=== PATIENT | female | born 1950 | race Caucasian/White ===

== ENCOUNTER 2017-03-03 10:09 | Emergency (ER) | payer MEDICARE, OTHER ==
[2017-03-03 11:02] VITALS: BP 157/67
[2017-03-03 11:39] LABS: CHLORIDE,CL 103 mmol/L (101-111); SODIUM,NA 139 mmol/L (135-145)
--- NOTE | 2017-03-03 12:50 | EDM.PDOC ---
Scribed by Melodie Gusman 03/03/17 1250 for Trip Bustamante MD ED HPI GENERAL MEDICAL PROBLEM - General Chief Complaint: Genitourinary Problem Stated Complaint: [id number] BLOOD IN URINE Time Seen by Provider: 03/03/17 10:43 Source of Information: Reports: Patient, RN, RN Notes Reviewed History Limitations: Reports: No Limitations - History of Present Illness INITIAL COMMENTS - FREE TEXT/NARRATIVE: Complained of blood in urine onset yesterday, no pain. Appears every time she urinates. Never happened before. No fever or chills. No recent injury. No change in bowel habits. No dark stool. No vaginal bleeding. Quality: Reports: Ache Severity: Severe Improves with: Reports: None Worsens with: Reports: None Associated Symptoms: Reports: No Other Symptoms - Related Data Allergies Allergy/AdvReac Type Severity Reaction Status Date / Time morphine AdvReac Severe SEVERE Verified 03/03/17 10:54 NAUSEA Home Meds: Home Meds Ascorbic Acid/Multivit-Min [Emergen-C Immune Plus Packet] 1 packet PO ASDIRECTED 07/11/15 [History] Calcium Carb/Vitamin D3/Vit K1 [Calcium + Vit D & K Chew] 1 tab PO BID 07/11/15 [History] Multivit-Min/Iron Fum/Folic AC [Zwper-Zvwnmpc-Fborpfuw Tablet] 1 tab PO DAILY [History] Past Medical History Cardiovascular History: Reports: High Cholesterol Genitourinary History: Reports: UTI, Recurrent 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: Endocrine/Metabolic History: Reports: Osteopenia, Other (See Below) Other Endocrine/Metabolic History: MACROCYTOSIS Hematologic History: Reports: Other (See Below) Other Hematologic History: MACROCYTOSIS - Past Surgical History Female Surgical History: Reports: Breast Biopsy, Breast Reconstruction, Section Musculoskeletal Surgical History: Reports: Shoulder Surgery, Other (See Below) Social & Family History - Family History Family Medical History: Noncontributory - Tobacco Use Smoking Status *Q: Former Smoker - Recreational Drug Use Recreational Drug Use: No ED ROS GENERAL - Review of Systems Review Of Systems: ROS reveals no pertinent complaints other than HPI. ED EXAM, RENAL/ - Physical Exam Exam: See Below Exam Limited By: No Limitations General Appearance: Alert, WD/WN, No Apparent Distress Respiratory/Chest: No Respiratory Distress Cardiovascular: Normal Peripheral Pulses, Regular Rate, Rhythm, No Edema, No Gallop, No JVD, No Murmur, No Rub GI/Abdominal: Normal Bowel Sounds, Soft, Non-Tender, No Organomegaly, No Distention, No Abnormal Bruit, No Mass, Other (No suprapubic tenderness.) (Female) Exam: Deferred Rectal (Female) Exam: Deferred Back Exam: No: CVA Tenderness (L), CVA Tenderness (R) Extremities: Normal Inspection, Normal Range of Motion, Non-Tender, Normal Capillary Refill, No Pedal Edema Neurological: Alert, Oriented, CN II-XII Intact, Normal Cognition, Normal Gait, Normal Reflexes, No Motor/Sensory Deficits Psychiatric: Normal Affect, Normal Mood Skin Exam: Warm, Dry, Intact, Normal Color, No Rash Course - Vital Signs Last Recorded V/S: Last Vital Signs Temp 36.8 C 03/03/17 10:42 Pulse 74 03/03/17 10:42 Resp 18 03/03/17 10:42 BP 157/67 H 03/03/17 10:42 Pulse Ox 100 03/03/17 10:42 - Orders/Labs/Meds Orders: Active Orders 24 hr Category Date Time Status CULTURE URINE [RM] Stat Lab 03/03/17 10:43 Received Labs: Laboratory Tests 03/03/17 03/03/17 03/03/17 Range/Units 10:43 11:14 11:14 WBC 7.0 (5.0-10.0) 10^3/uL RBC 3.61 L (4.2-5.4) 10^6/uL Hgb 11.9 L (12.0-16.0) g/dL Hct 37.3 (37.0-47.0) % MCV 103.3 H (80-100) fL MCH 33.0 (27.0-34.0) pg MCHC 31.9 L (33.0-35.0) g/dL Plt Count 299 (150-450) 10^3/uL Neut % (Auto) 65.4 (42.2-75.2) % Lymph % (Auto) 27.2 (20.5-50.1) % Edmunds % (Auto) 6.3 (2-8) % Eos % (Auto) 1.0 (1.0-3.0) % Baso % (Auto) 0.1 (0.0-1.0) % Sodium 139 (135-145) mmol/L Potassium 4.8 (3.6-5.0) mmol/L Chloride 103 (101-111) mmol/L Carbon Dioxide 28.0 (21.0-31.0) mmol/L Anion Gap 12.8 BUN 16 (7-18) mg/dL Creatinine 0.6 (0.6-1.3) mg/dL Est Cr Clr Drug Dosing 70.28 mL/min Estimated GFR (MDRD) > 60 BUN/Creatinine Ratio 26.66 Glucose 91 (74-105) mg/dL Calcium 9.5 (8.4-10.2) mg/dl Total Bilirubin 0.7 (0.2-1.0) mg/dL AST 28 (10-42) IU/L ALT 36 (10-60) IU/L Alkaline Phosphatase 178 H (42-121) IU/L Total Protein 7.8 (6.7-8.2) g/dl Albumin 3.8 (3.2-5.5) g/dl Globulin 4.0 Albumin/Globulin Ratio 0.95 Urine Color Patricia (YELLOW) Urine Appearance Turbid (CLEAR) Urine pH 7.0 (5.0-9.0) Ur Specific [place] 1.015 (1.005-1.030) Urine Protein 30 H (NEGATIVE) Urine Glucose (UA) Negative (NEGATIVE) Urine Ketones Negative (NEGATIVE) Urine Occult Blood Large H (NEGATIVE) Urine Nitrite Positive H (NEGATIVE) Urine Bilirubin Negative (NEGATIVE) Urine Urobilinogen 0.2 (0.2-1.0) mg/dL Ur Leukocyte Esterase Trace H (NEGATIVE) Urine RBC >100 H /HPF Urine WBC 5-10 H (0-5/HPF) /HPF Ur Epithelial Cells Rare /HPF Urine Bacteria Many H (0-FEW/HPF) /HPF - Radiology Interpretation Free Text/Narrative:: CT abdomen/pelvis: No urinary calculi. No evidence of acute obstructive uropathy. Bilateral renal pelves, more prominent on the right, with mild fullness of the fibula bilaterally. No obstructing etiology. Mild colonic diverticulosis without diverticulitis. Mild dilatation of the distal CBD measuring 7.5mm. No obstructing etiology identified. Fibroid uterus. See rad report. Departure - Departure Time of Disposition: 12:47 Disposition: Home, Self-Care 01 Condition: Good Clinical Impression: UTI (urinary tract infection) Qualifiers: Urinary tract infection type: site unspecified Hematuria presence: with hematuria Qualified Code(s): N39.0 - Urinary tract infection, site not specified ; R31.9 - Hematuria, unspecified Hematuria Qualifiers: Hematuria type: gross Qualified Code(s): R31.0 - Gross hematuria - Discharge Information Instructions: Urinary Tract Infection, Adult, Zvne-od-Iinz, Hematuria, Adult Forms: ED Department Discharge Additional Instructions: RX: Cipro 500mg. Follow up in clinic in 5 to 7 days if not improved. - My Orders Last 24 Hours: My Active Orders 03/03/17 10:43 CULTURE URINE [RM] Stat - Assessment/Plan Last 24 Hours: My Active Orders 03/03/17 10:43 CULTURE URINE [RM] Stat I have read and agree with the documentation that has been completed regarding this visit. By signing this record, I attest that the documentation was completed in my physical presence and is an accurate record of the encounter.
== END 2017-03-03 13:06 | disposition home or self-care (01) ==
LOC: DL.ED 10:09
DX: N39.0 Urinary tract infection, site not specified (principal); R31.0 Gross hematuria; E78.00 Pure hypercholesterolemia, unspecified; Z98.890 Other specified postprocedural states; Z87.891 Personal history of nicotine dependence; Z88.5 Allergy status to narcotic agent
CPT/HCPCS: 36415; 74176; 80053; 81001; 85025; 87086; 87088; 87186; 99283

== ENCOUNTER 2018-07-16 09:11 | Day surgery (SDC) | payer MEDICARE, OTHER ==
[2018-07-16] MEDS ORDERED: Sodium Chloride 0.9% 10 ML Syringe IV ONE (09:12)
[2018-07-16] MEDS ORDERED: Dexamethasone 4 MG/ML SDV IV ONE (09:12)
[2018-07-16] MEDS ORDERED: Midazolam 1 MG/ML 2 ML SDV IV ONE (09:12)
[2018-07-16] MEDS ORDERED: Timolol Maleate 0.5% Ophth Soln 5 ML Bottle EYERT ONE (09:30)
[2018-07-16] MEDS ORDERED: Cataract Ophth Solution EYERT ONE (09:30)
[2018-07-16] MEDS ORDERED: Sodium Chloride 0.9% 10 ML Syringe FLUSH PRN (09:30)
[2018-07-16] MEDS ORDERED: Acetaminophen 325 MG Tab PO PRN (09:30)
[2018-07-16] MEDS ORDERED: Povidone-Iodine 5% Sterile Ophth Soln 30 ML Bottle EYERT ONE ×2 (09:30→10:54)
[2018-07-16] MEDS ORDERED: Proparacaine 0.5% Ophth Soln 15 ML Bottle EYERT ONE (09:30)
[2018-07-16] MEDS ORDERED: Phenylephrine 10% Ophth Soln 5 ML Bot EYERT PRN (09:30)
[2018-07-16] MEDS ORDERED: Phenylephrine 10% Ophth Soln 5 ML Bot EYERT ONE (09:30)
[2018-07-16] MEDS ORDERED: Ondansetron 4 MG/2 ML SDV IVPUSH PRN (09:30)
[2018-07-16] MEDS ORDERED: Moxifloxacin 0.5% Ophth Soln 3 ML Bottle EYERT ONE (09:30)
[2018-07-16] MEDS ORDERED: Tetracaine HCl/PF 0.5% 4 ML Bottle EYERT ONE (10:53)
[2018-07-16] MEDS ORDERED: Apraclonidine 0.5% Ophth Soln 5 ML Bot EYERT ONE (10:54)
[2018-07-16] MEDS ORDERED: Diclofenac Sodium 0.1% Ophth Soln 5 ML Bottle EYERT ONE (10:54)
[2018-07-16] MEDS ORDERED: Dexamethasone/Neomycin/Polymyxin B Ophth Oint 3.5 GM Tube EYERT ONE (10:55)
[2018-07-16] MEDS ORDERED: Vancomycin 500 MG SDV EYERT ONE (10:55)
[2018-07-16] MEDS ORDERED: Balanced Salt Solution Ophth Irrig 500 ML Bottle IOCULAR ONE (10:56)
[2018-07-16] MEDS ORDERED: Lidocaine 1% 30 ML SDV ONE (10:57)
[2018-07-16] MEDS ORDERED: Chondroitin Sulfate/Hyaluronate Sodium Ophth Inj 0.75 ML Syringe EYERT ONE (10:57)
--- NOTE | 2018-07-16 11:29 | OR ---
DATE: 07/16/2018 PREOPERATIVE DIAGNOSIS: Visually significant mixed cataract, right eye. POSTOPERATIVE DIAGNOSIS: Visually significant mixed cataract, right eye. PROCEDURE: Extracapsular cataract extraction with intraocular lens implant, right eye. ANESTHESIA: Topical/local MAC. COMPLICATIONS: None. INDICATION: Ms. Jin was seen in the clinic. She has complaints of difficulty reading and difficulty seeing small print. Her examination reveals mixed cataract with nuclear and cortical change. I explained options; offered surgery; and explained risks including the potential for infection, retinal detachment, and loss of vision amongst others. We discussed implant options, and she requested surgery with a monofocal implant. OPERATIVE DESCRIPTION: After informed consent was obtained and the risks, benefits, and alternatives were explained, the patient was brought to the operative suite and topical anesthesia was administered. The patient was then prepped and draped in the sterile fashion, and attention was placed on the right eye. A sterile lid speculum was placed into the right eye to allow operative exposure. A full-thickness paracentesis was made in the temporal portion of the operative eye. Preservative-free lidocaine 0.1 mL was injected into the anterior chamber followed by viscoelastic. A full-thickness corneal incision was then made into the anterior chamber. A bent needle cystotome was used to create a small megan in the anterior capsule. The capsulorrhexis forceps was then used to create a 360-degree curvilinear capsulorrhexis. The nucleus was then removed using a phacoemulsification handpiece, and the remaining cortical material was then removed with irrigation and aspiration handpiece. Following removal of the cortical material, the capsular bag was then inspected and noted to be free of any holes or tears. Viscoelastic was then injected into the capsular bag, and the intraocular lens was inserted into the capsular bag. The viscoelastic material was then removed from both the anterior and posterior chambers and from behind the IOL. The lens and capsular bag were then reinspected. The IOL was well centered and the capsular bag intact. The wound and paracentesis sites were inspected and hydrated with balanced saline solution. Both were found to be self-sealing. The intraocular pressure was assessed digitally and found to be within normal range. A good red reflex was noted at the completion of the procedure. No complications occurred during the operation. At the completion of the procedure, Maxitrol, Voltaren, and Iopidine drops were placed into the operative eye. A sterile eye shield was placed over the operative eye, and the patient was transported to the postoperative recovery area having tolerated the procedure well. Postoperative instructions were given along with a postoperative appointment. The patient was advised to call with any questions or concerns. [facility] /[id number]
[2018-07-16 13:47] VITALS: BP 97/52
== END 2018-07-16 12:03 | disposition home or self-care (01) ==
LOC: DL.SDS 09:11
PROVIDERS: ATTEND Ophthalmology
DX: H25.811 Combined forms of age-related cataract, right eye (principal); H26.9 Unspecified cataract; E78.5 Hyperlipidemia, unspecified; F41.9 Anxiety disorder, unspecified; Z87.891 Personal history of nicotine dependence; Z79.899 Other long term (current) drug therapy; Z88.5 Allergy status to narcotic agent
CPT/HCPCS: 66984; A9270; J1100; J2250; J3370; 00142; C1780

== ENCOUNTER 2018-07-23 06:25 | Day surgery (SDC) | payer MEDICARE, OTHER ==
[~2018-07-23 06:25] MED LIST: Proparacaine 0.5% Ophth Soln 15 ML Bottle ONE; Sodium Chloride 0.9% 10 ML Syringe FLUSH PRN
[2018-07-23] MEDS ORDERED: Dexamethasone 4 MG/ML SDV IV ONE (06:26)
[2018-07-23] MEDS ORDERED: Midazolam 1 MG/ML 2 ML SDV IV ONE (06:26)
[2018-07-23] MEDS ORDERED: Sodium Chloride 0.9% 10 ML Syringe IV ONE (06:26)
[2018-07-23] MEDS ORDERED: Acetaminophen 325 MG Tab PO PRN (07:00)
[2018-07-23] MEDS ORDERED: Moxifloxacin 0.5% Ophth Soln 3 ML Bottle EYELF ONE (07:00)
[2018-07-23] MEDS ORDERED: Phenylephrine 10% Ophth Soln 5 ML Bot EYELF ONE (07:00)
[2018-07-23] MEDS ORDERED: Phenylephrine 10% Ophth Soln 5 ML Bot EYELF PRN (07:00)
[2018-07-23] MEDS ORDERED: Proparacaine 0.5% Ophth Soln 15 ML Bottle EYELF ONE (07:00)
[2018-07-23] MEDS ORDERED: Ondansetron 4 MG/2 ML SDV IVPUSH PRN (07:00)
[2018-07-23] MEDS ORDERED: Cataract Ophth Solution EYELF ONE (07:00)
[2018-07-23] MEDS ORDERED: Timolol Maleate 0.5% Ophth Soln 5 ML Bottle EYELF ONE (07:00)
[2018-07-23] MEDS ORDERED: Povidone-Iodine 5% Sterile Ophth Soln 30 ML Bottle EYELF ONE ×2 (07:00→07:50)
[2018-07-23] MEDS ORDERED: Tetracaine HCl/PF 0.5% 4 ML Bottle EYELF ONE (07:50)
[2018-07-23] MEDS ORDERED: Lidocaine 1% 30 ML SDV INJECT ONE (07:54)
[2018-07-23] MEDS ORDERED: Vancomycin 500 MG SDV EYELF ONE (07:55)
[2018-07-23] MEDS ORDERED: Balanced Salt Solution Ophth Irrig 500 ML Bottle IOCULAR ONE (07:55)
[2018-07-23] MEDS ORDERED: Chondroitin Sulfate/Hyaluronate Sodium Ophth Inj 0.75 ML Syringe EYELF ONE (07:55)
[2018-07-23] MEDS ORDERED: Dexamethasone/Neomycin/Polymyxin B Ophth Oint 3.5 GM Tube EYELF ONE (08:02)
[2018-07-23] MEDS ORDERED: Apraclonidine 0.5% Ophth Soln 5 ML Bot EYELF ONE (08:02)
[2018-07-23] MEDS ORDERED: Diclofenac Sodium 0.1% Ophth Soln 5 ML Bottle EYELF ONE (08:02)
--- NOTE | 2018-07-23 08:26 | OR ---
DATE: 07/23/2018 PREOPERATIVE DIAGNOSIS: Visually significant mixed cataract, left eye. POSTOPERATIVE DIAGNOSIS: Visually significant mixed cataract, left eye. PROCEDURE: Extracapsular cataract extraction with intraocular lens implant, left eye. ANESTHESIA: Topical/local MAC. COMPLICATIONS: None. INDICATION: Mrs. Jin was seen in the clinic. She has complained of a slow progressive decrease in vision. She has difficulty watching television and seeing small print. Examination reveals visually significant mixed cataract. I explained the options, offered surgery, and explained risks. Explained the potential for infection, retinal detachment, loss of vision amongst others. We discussed implant options. She has requested surgery with a monofocal implant. OPERATIVE DESCRIPTION: After informed consent was obtained and the risks, benefits, and alternatives were explained, the patient was brought to the operative suite and topical anesthesia was administered. The patient was then prepped and draped in the sterile fashion and attention was placed on the left eye. A sterile lid speculum was placed into the left eye to allow operative exposure. A full-thickness paracentesis was made in the temporal portion of the operative eye. Preservative-free lidocaine 0.1 mL was injected into the anterior chamber followed by viscoelastic. A full-thickness corneal incision was then made into the anterior chamber. A bent needle cystotome was used to create a small megan in the anterior capsule. The capsulorrhexis forceps was then used to create a 360-degree curvilinear capsulorrhexis. The nucleus was then removed using a phacoemulsification handpiece and the remaining cortical material was then removed with irrigation and aspiration handpiece. Following removal of the cortical material, the capsular bag was then inspected and noted to be free of any holes or tears. Viscoelastic was then injected into the capsular bag and the intraocular lens was inserted into the capsular bag. The viscoelastic material was then removed from both the anterior and posterior chambers and from behind the IOL. The lens and capsular bag were then reinspected. The IOL was well centered and the capsular bag intact. The wound and paracentesis sites were inspected and hydrated with balanced saline solution. Both were found to be self- sealing. The intraocular pressure was assessed digitally and found to be within normal range. A good red reflex was noted at the completion of the procedure. No complications occurred during the operation. At the completion of the procedure, Maxitrol, Voltaren, and Iopidine drops were placed into the operative eye. A sterile eye shield was placed over the operative eye and the patient was transported to the postoperative recovery area having tolerated the procedure well. Postoperative instructions were given along with a postoperative appointment. The patient was advised to call with any questions or concerns. [facility] /[id number]
[2018-07-23 11:34] VITALS: BP 95/46
== END 2018-07-23 09:07 | disposition home or self-care (01) ==
LOC: DL.SDS 06:25
PROVIDERS: ATTEND Ophthalmology
DX: H25.812 Combined forms of age-related cataract, left eye (principal); E78.5 Hyperlipidemia, unspecified; Z87.891 Personal history of nicotine dependence; Z79.899 Other long term (current) drug therapy; Z88.5 Allergy status to narcotic agent
CPT/HCPCS: 00142; 66984; A9270; J1100; J2250; J3370; C1780

== ENCOUNTER 2024-11-29 15:25 | Emergency (ER) | payer MEDICARE, OTHER ==
[2024-11-29] MEDS ORDERED: Sodium Chloride 0.9% 10 ML Syringe FLUSH PRN (15:45)
[2024-11-29 16:22] LABS: BASOPHILS PERCENT AUTO 0.2 % (0.0-1.0); EOSINOPHILS PERCENT AUTO 0.7 % (1.0-3.0); HEMATOCRIT 41.7 % (37.0-47.0); HEMOGLOBIN 13.7 g/dL (12.0-16.0); LYMPHOCYTES PERCENT AUTO 17.6 % (20.5-50.1); MEAN CORPUSCULAR HEMOGLOBIN 33.8 pg (27.0-34.0); MEAN CORPUSCULAR HGB CONC 32.9 g/dL (33.0-35.0); MONOCYTES PERCENT AUTO 6.8 % (2-8); NEUTROPHILS PERCENT AUTO 74.7 % (42.2-75.2); PLATELET COUNT,PLT 174 10^3/uL (150-450); RED BLOOD CELL COUNT 4.05 10^6/uL (4.2-5.4); WHITE BLOOD CELL COUNT,WBC 5.7 10^3/uL (5.0-10.0)
[2024-11-29] MEDS: fentaNYL 100 MCG/2 ML SDV IVPUSH ONE (16:23)
[2024-11-29] MEDS: Ondansetron 4 MG/2 ML SDV IVPUSH ONE (16:23)
[2024-11-29 16:39] LABS: APPEARANCE,URINE SLIGHTLY CLOUDY (CLEAR); BILIRUBIN,URINE NEGATIVE (NEGATIVE); COLOR,URINE YELLOW (YELLOW); GLUCOSE,URINE NEGATIVE (NEGATIVE); KETONES,URINE 15 (NEGATIVE); LEUKOCYTE ESTERASE,URINE SMALL (NEGATIVE); NITRITE,URINE POSITIVE (NEGATIVE); OCCULT BLOOD,URINE SMALL (NEGATIVE); PH,URINE 5.5 (5.0-9.0); PROTEIN,URINE NEGATIVE (NEGATIVE); UROBILINOGEN,URINE 0.2 mg/dL (0.2-1.0)
[2024-11-29 16:45] LABS: LACTIC ACID 0.9 mmol/L (0.4-2.0)
[2024-11-29 17:00] LABS: A/G RATIO 1.1; ANION GAP 12.9 mEq/L (7-13); BILIRUBIN TOTAL 0.9 mg/dL (0.2-1.0); BUN/CREATININE RATIO 33.3 (No establ ref range); C-REACTIVE PROTEIN 0.87 ng/dL (<=0.50); CALCIUM 9.4 mg/dL (8.5-10.1); CREATININE 0.75 mg/dL (0.55-1.02); EST CRCL DRUG DOSING (CG) 50.32 mL/min; POTASSIUM,K 3.9 mmol/L (3.5-5.1); PROTEIN TOTAL,TP 7.5 g/dL (6.4-8.2)
[2024-11-29 17:02] LABS: PROTHROMBIN TIME 10.2 SEC (9.0-12.0); PTT,PARTIAL THROMBOPLSTIN TIME 23.9 SEC (22.0-34.0)
[2024-11-29 17:08] LABS: WBC,URINE 50-75 /HPF (0-5/HPF)
[2024-11-29 17:09] LABS: BACTERIA,URINE MANY /HPF (0-FEW/HPF); EPITHELIAL CELLS,URINE FEW /HPF (NOT SEEN)
[2024-11-29] MEDS: Citric Acid/Simethicone/Sodium Bicarbonate Granules 4 GM Packet PO ONE (17:49)
[2024-11-29] MEDS: Glucagon,Human Recombinant 1 MG Vial IVPUSH ONE (17:50)
[2024-11-29] MEDS: Iopamidol 612 MG/ML 100 ML Bottle IVPUSH ONE (17:58)
[2024-11-29] MEDS: diazePAM 10 MG/2 ML Syringe IVPUSH ONE ×2 (18:10→20:30)
[2024-11-29] MEDS: GI Cocktail Oral Solution 30 ML PO ONE (18:10)
[2024-11-29 18:40] VITALS: BP 123/70; PULSE 62
[2024-11-29] MEDS: Pantoprazole 40 MG Vial IVPUSH ONE (20:01)
[2024-11-29] MEDS: Sodium Chloride 0.9% 1,000 ML IV SCH (20:25)
[2024-11-29] MEDS: Benzocaine 20% Topical Spray UD MUCMEM ONE (20:30)
[2024-11-29] MEDS: Piperacillin/Tazobactam 3.375 GM in Sodium Chloride 0.9% 100 ML IV ONE (20:40)
== END 2024-11-29 20:59 ==
LOC: DL.ED 15:25
DX: K25.2 Acute gastric ulcer with both hemorrhage and perforation (principal); Q26.5 Anomalous portal venous connection; Z88.5 Allergy status to narcotic agent; Z79.899 Other long term (current) drug therapy
CPT/HCPCS: 36415; 43752; 71045; 74018; 74177; 80053; 81001; 83605; 83690; 84484; 85025; 85610; 85730; 86140; 87040; 87086; 87088; 87186; 93005; 96365; 96375; 96376; 99285; A9270; J1610; J2405; J2470; J2543; J3010; J3360; J7030; Q9967

== ENCOUNTER 2024-12-03 17:05 | Emergency (ER) | payer MEDICARE, OTHER ==
[2024-12-03] MEDS: Lidocaine 2% with EPINEPHrine 1:200,000 20 ML SDV INJECT ONE (17:30)
[2024-12-03] MEDS: Tranexamic Acid 1,000 MG/10 ML Vial ONE (17:30)
[2024-12-03] MEDS: Silver Nitrate Applicator Each TOP ONE (17:35)
[2024-12-03] MEDS ORDERED: Sodium Chloride 0.9% 10 ML Syringe FLUSH PRN (17:35)
[2024-12-03 17:46] LABS: BASOPHILS PERCENT AUTO 0.3 % (0.0-1.0); EOSINOPHILS PERCENT AUTO 0.3 % (1.0-3.0); HEMATOCRIT 32.8 % (37.0-47.0); HEMOGLOBIN 10.8 g/dL (12.0-16.0); LYMPHOCYTES PERCENT AUTO 22.2 % (20.5-50.1); MEAN CORPUSCULAR HEMOGLOBIN 33.3 pg (27.0-34.0); MEAN CORPUSCULAR HGB CONC 32.9 g/dL (33.0-35.0); MEAN CORPUSCULAR VOLUME 101.2 fL (80-100); MONOCYTES PERCENT AUTO 8.8 % (2-8); NEUTROPHILS PERCENT AUTO 68.4 % (42.2-75.2); PLATELET COUNT,PLT 174 10^3/uL (150-450); RED BLOOD CELL COUNT 3.24 10^6/uL (4.2-5.4); WHITE BLOOD CELL COUNT,WBC 7.6 10^3/uL (5.0-10.0)
[2024-12-03 17:51] LABS: ANION GAP 6.9 mEq/L (7-13); BLOOD UREA NITROGEN,BUN 6 mg/dL (7-18); CALCIUM 9.2 mg/dL (8.5-10.1); CARBON DIOXIDE,CO2 33 mmol/L (21-32); CHLORIDE,CL 104 mmol/L (98-107); CREATININE 0.68 mg/dL (0.55-1.02); ESTIMATED GFR 92 mL/min (>=60); GLUCOSE RANDOM 128 mg/dL (70-99); POTASSIUM,K 3.9 mmol/L (3.5-5.1); SODIUM,NA 140 mmol/L (136-145)
[2024-12-03] MEDS: Iopamidol 612 MG/ML 100 ML Bottle IVPUSH ONE (17:56)
[2024-12-03] MEDS: Lidocaine 2% with EPINEPHrine 1:200,000 20 ML SDV ONE (18:37)
[2024-12-03] MEDS: Silver Nitrate Applicator Each ONE (18:37)
[2024-12-03 19:52] VITALS: BP 158/71; PULSE 80
== END 2024-12-03 19:44 | disposition home or self-care (01) ==
LOC: DL.ED 17:05
DX: L76.22 Postprocedural hemorrhage of skin and subcutaneous tissue following other procedure (principal); E78.00 Pure hypercholesterolemia, unspecified; Z88.5 Allergy status to narcotic agent; Z79.899 Other long term (current) drug therapy; Z88.6 Allergy status to analgesic agent
CPT/HCPCS: 36415; 74177; 80048; 85025; 99284; Q9967; J3490